=== PATIENT | female | born 1970 | race Caucasian/White ===

== ENCOUNTER 2018-07-19 06:11 | Inpatient (IN) ==
--- NOTE | 2018-06-26 12:51 | Anesthesiology Consultation ---
Date of Service June 26, 2018 Assessment & Plan (1) Encounter for pre-operative examination: Plan: PCP Clearance 07/07/18: Patient found to be at an acceptable cardiopulmonary risk for the planned procedure and may proceed as scheduled. *POSSIBLE DIFFICULT SPINAL BASED ON PATIENT'S REPORTING OF C/S EXPERIENCE* Chart Review Chart Review: Acceptable Risk for Surgery and Patient seen in Pre Admission Testing Teaching & Discussion Instructed NPO after midnight before surgery, except medications with 15 cc of water. Medication instructions provided according to the PAT guidelines. History Surgery Operation Date: 07/19/18 08:50 Proposed Procedures p Right Total Hip Arthroplasty - Maco Sykes MD Height/Weight Height: 5 ft 8 in Weight: 113.5 kg Allergies Allergy/AdvReac Type Severity Reaction Status Date / Time No Known Allergies Allergy Verified 07/19/18 06:29 Medications Home Medications Medication Instructions Recorded Confirmed Last Taken bupropion HCl 300 mg PO QAM 06/20/18 07/19/18 07/18/18 09:00 cetirizine [Zyrtec] 10 mg PO QAM 06/20/18 07/19/18 07/18/18 09:00 cyanocobalamin (vitamin B-12) 1,000 mcg PO QAM 06/20/18 07/19/18 07/18/18 09:00 fluoxetine 40 mg PO QAM 06/20/18 07/19/18 07/18/18 09:00 metformin 500 mg PO BID 06/20/18 07/19/18 07/18/18 18:00 simvastatin 20 mg PO QAM 06/20/18 07/19/18 07/18/18 09:00 Active Medications Generic Name Dose Route Start Last Admin Trade Name Freq PRN Reason Stop Dose Admin Lactated Ringer's 1,000 mls @ 60 mls/hr 07/19/18 06:00 07/19/18 06:50 Lr IV 07/19/18 22:39 Not Given .[id number] RUBÉN Lactated Ringer's 1,000 mls @ 999 mls/hr 07/19/18 06:00 07/19/18 07:30 Lr IV 08/18/18 05:59 15 mls/hr .[id number] RUBÉN Infusion Past Medical History Medical History Anxiety Depression Hyperlipidemia Obesity Osteoarthritis PCOS (polycystic ovarian syndrome) Prediabetes Past Surgical History Surgical History History of arthroscopy RIGHT HIP LABRAL REPAIR History of section Past Anesthesia History No Hx of Anesthesia Complications and No Family Hx of Anesthesia Complications PT MAY HAVE BEEN DIFFICULT SPINAL FOR C/S. SHE RECALLS IT NOT WORKING AND A SECOND INJECTION BEING NEEDED. History of PONV No Motion Sickness Screening History of Motion Sickness: No Social History Smoking Status: Never smoker Do You Dip or Chew Tobacco: No Hx Alcohol Use: Yes Alcohol type: other alcohol intake frequency: holidays/special occasions only Hx Substance Use: No substance use type: does not use Exercise / Class Metabolic Activity II 4-5 Yardwork/Stairs/Walk up hill (no CP or SOB with stairs) Review of Systems Pt denies any recent chest pain, shortness of breath, palpitations, cough, fever or URI. Physical Exam Vital Signs Last Vital Signs Temp 36.7 C 07/19/18 06:37 Pulse 75 07/19/18 06:37 Resp 18 07/19/18 06:37 BP 149/93 H 07/19/18 06:37 Pulse Ox 96 07/19/18 06:37 BP: 118/75 P: 66bpm SPO2: 98% RA T: 97.9 F R: 16 ENMT Mouth: no dental restorations, no chipped teeth and no loose teeth Thyromental Distance: > or= 3.5 Finger Breadths (3.5) Mallampati Class: II Neck normal visual inspection; neck extension not limited Respiratory normal respiratory effort Auscultation: lungs clear to auscultation bilaterally Cardiovascular Rate/Rhythm: regular rate and regular rhythm Heart Sounds: no murmur Vessels: no carotid bruit Testing Electrocardiogram Date: 06/26/18 Findings: + SB @ (54) Low voltage QRS. Chest X-Ray Date: 06/26/18 Findings: + NAD Laboratory Results 06/26/18 12:47 06/26/18 12:47 Blood Type A Positive 06/26/18 12:47 Antibody Screen NEGATIVE 06/26/18 12:47 PT 10.2 Seconds (9.0-12.0) 06/26/18 12:47 INR 1.0 (0.9-1.1) 06/26/18 12:47 APTT 26.7 Seconds (21.0-31.0) 06/26/18 12:47 Urine Color Yellow 06/26/18 Unknown Urine Appearance Clear (Clear) 06/26/18 Unknown Urine pH 6.0 (4.5-7.5) 06/26/18 Unknown Ur Specific [place] 1.011 (1.000-1.030) 06/26/18 Unknown Urine Protein Negative (Negative) 06/26/18 Unknown Urine Glucose (UA) Negative (Negative) 06/26/18 Unknown Urine Ketones Negative (Negative) 06/26/18 Unknown Urine Nitrite Negative (Negative) 06/26/18 Unknown Ur Leukocyte Esterase Negative (Negative) 06/26/18 Unknown 06/26/18 Unknown Urine Culture - Final Urine,Clean Catch No growth - less than 1,000 colonies/mL. 07/19/18 06:30 POC Glucose 110 H 07/19/18 06:20 POC Ur Test NEG
--- NOTE | 2018-06-26 13:05 | PAT Medication Instructions ---
Medication Instructions Date of Service June 26, 2018 Home Medications bupropion HCl 300 mg PO QAM cetirizine [Zyrtec] 10 mg PO QAM cyanocobalamin (vitamin B-12) 1,000 mcg PO QAM fluoxetine 40 mg PO QAM metformin 500 mg PO BID simvastatin 20 mg PO QAM DO NOT take the morning of surgery cetirizine [Zyrtec] 10 mg PO QAM cyanocobalamin (vitamin B-12) 1,000 mcg PO QAM metformin 500 mg PO BID Take morning of surgery With a small sip of water, OTHERWISE NOTHING TO EAT OR DRINK AFTER MIDNIGHT: bupropion HCl 300 mg PO QAM fluoxetine 40 mg PO QAM simvastatin 20 mg PO QAM Take evening before surgery metformin 500 mg PO BID Other Notes If you have any questions please call us at [phone] or [phone] or [phone] or [phone]
[2018-06-26 13:19] LABS: Basophils # (auto) 0.02 K/uL (0-0.2); Basophils % (auto) 0.4 %; Eosinophils # (auto) 0.19 K/uL (0-0.5); Eosinophils % (auto) 3.5 %; Hematocrit (blood only) 38.6 % (37-47); Hemoglobin 12.8 g/dL (12.0-16.0); Immature Granulocytes # (auto) 0.02 K/uL (0.00-0.02); Immature Granulocytes % (auto) 0.4 %; Mean Corpuscular Hgb Conc 33.2 g/dL (32-36); Mean Corpuscular Volume 92.1 fL (80-100); Mean Platelet Volume 8.8 fL (7.4-10.4); Monocytes # (auto) 0.29 K/uL (0.11-0.59); Monocytes % (auto) 5.4 %; Neutrophils # (auto) 2.88 K/uL (1.4-6.5); Neutrophils % (auto) 53.3 %; Platelet Count 276 K/uL (130-400); RDW Coefficient of Variation 13.2 % (11.5-14.5); RDW Standard Deviation 44.1 fL (36.4-46.3); Red Blood Count 4.19 M/uL (4.2-5.4)
[2018-06-26 13:23] LABS: Partial Thromboplastin Time 26.7 Seconds (21.0-31.0); Prothrombin Time 10.2 Seconds (9.0-12.0)
[2018-06-26 13:24] LABS: Calcium 8.8 mg/dl (8.5-10.1); Creatinine Clr Calc Pharmacy 114.9 ml/min; Est GFR (African American) 101.8; Est GFR (Non-African American) 87.8; Potassium 4.2 mmol/L (3.5-5.1)
--- NOTE | 2018-06-26 13:25 | XRay Report ---
XR chest Pre-admission PA/Lat CLINICAL HISTORY: Preoperative evaluation. COMPARISON STUDY: No previous studies for comparison. FINDINGS: Lung volumes are normal. There is no pneumothorax or pleural effusion. There is no consolid ation or evidence for pulmonary edema. Cardiac size is normal. Mediastinal contours are normal. IMPRESSION: No acute cardiopulmonary findings. Electronically signed by: Wilfred Corrigan M.D. 06/26/2018 1:24 PM
[2018-06-26 15:35] LABS: Appearance Urine Clear (Clear); Bilirubin Urine Negative (Negative); Color Urine Yellow; Glucose Urine UA Negative (Negative); Ketones Urine Negative (Negative); Leukocyte Esterase Urine Negative (Negative); Nitrite Urine Negative (Negative); Protein Urine Negative (Negative); Specific Gravity Urine 1.011 (1.000-1.030); Urobilinogen Urine Negative (Negative)
--- NOTE | 2018-06-30 18:40 | History and Physical Report ---
DATE OF ADMISSION: 07/19/2018 CHIEF COMPLAINT: Right hip pain. HISTORY OF PRESENT ILLNESS: This 47-year-old white female presents to the office with complaints of longstanding history of right hip pain. It has been ongoing for over 2 years. She previously had a hip arthroscopy done approximately a year ago without lasting improvement. Pain is increased. She feels her hip is getting stiffer and painful with time. She denies any numbness or tingling. She has noticed some loss of motion. She has tried oral antiinflammatories as well as activity modification and physical therapy without improvement. X-rays have been obtained. The pain is affecting her ADLs and is worse with weightbearing. She elects to proceed with right total hip arthroplasty on 07/19/2018 in hopes of alleviating her pain. PAST MEDICAL HISTORY: Significant for elevated cholesterol, prediabetes, ADHD, obesity, low back pain, and osteoarthritis. PAST SURGICAL HISTORY: in 2006, right hip arthroscopy with labral repair in 2017. ALLERGIES: NKDA. CURRENT MEDICATIONS: Bupropion 300 mg p.o. daily, fluoxetine 40 mg p.o. daily, metformin 500 mg p.o. b.i.d., simvastatin unknown dose daily, vitamin B12 daily, Zyrtec 10 mg daily. SOCIAL HISTORY: Patient is employed. . No tobacco use, no ETOH use. FAMILY HISTORY: Noncontributory. REVIEW OF SYSTEMS: A total of 10 systems reviewed and significant only for above stated conditions. PHYSICAL EXAMINATION: GENERAL: Well-developed and well-nourished middle aged white female, in no acute distress, sitting on a bed, alert and oriented, mildly obese. SKIN: Warm and dry, with good turgor. No rashes or lesions, no ecchymosis or erythema. Tattoos are noted. HEENT: Normocephalic, atraumatic. Eyes: PERRLA, EOMI. Nares patent bilaterally, without turbinate enlargement. Oropharynx without erythema or exudate, no lesions noted. Uvula midline. Oral mucosa moist. Good dentition. HEART: RRR. No MGR. LUNGS: Clear to auscultation bilaterally. No crackles, rhonchi, or wheezing. Good air movement. ABDOMEN: Mildly obese, bowel sounds present x4, soft, nontender. No organomegaly. No masses. MUSCULOSKELETAL: Right hip evaluation reveals no obvious asymmetry or deformity. She has reasonably good motion with hip flexion to around 100 degrees. Significant stiffness with internal and external rotation. There is limited internal rotation to neutral, external rotation of around 15 degrees. This is limited by pain. Ambulatory with an antalgic gait. She has no discomfort with palpation over her greater trochanter or IT band. There is discomfort with palpation over the anterior flexion crease. NEUROLOGIC: Cranial nerves II through XII are intact. Gross sensation is intact across the lower extremities by soft touch. Peripheral pulses are 2+. DATA: Radiographic imaging previously obtained shows end-stage DJD of the right hip. Subchondral cyst formation, joint space narrowing, and periarticular osteophytes are all present. IMPRESSION: Right hip end-stage degenerative joint disease. PLAN Approximately 20 minutes spent with the patient in the office. Postoperative prescriptions for Percocet and Coumadin will be provided at discharge from the hospital. Anticipate discharge to home with home health services. She already has access to a cane. Prescription was provided for a rolling walker. She has an appointment to see her PCP for medical clearance. Preoperative lab work, EKG, and chest x-ray have been ordered. Informed written consent will be obtained on the day of surgery to proceed with right total hip arthroplasty.
[~2018-07-19 06:11] MED LIST: CEFAZOLIN 2000MG 2,000 MG/15 ML SYR IV SCH; LR 500ML BOLUS, THEN 15ML/HR IV SCH; LR 60ML/HR IV SCH; ROPIVACAINE 0.5% HCL/PF 150 MG, BUPIVACAINE 0.5% MPF 30 ML, EPINEPHrine 0.15 MG, Ketoro... INFIL SCH; TRANEXAMIC ACID 1,000 MG **IV Pre-op IV SCH
[2018-07-19] MEDS ORDERED: BUPIVACAINE 0.5 % 5 MG/1 ML PF 10ML VIAL ONE (06:26)
[2018-07-19] MEDS ORDERED: fentaNYL citrate 100 MCG/2 ML VIAL ONE (06:28)
[2018-07-19] MEDS ORDERED: MIDAZOLAM HCL 1 MG/ML 2ML VIAL ONE ×3 (06:28→09:19)
--- NOTE | 2018-07-19 06:30 | History & Physical Bridge Note ---
Date of Service July 19, 2018 History & Physical Bridge Note I have examined the patient, reviewed the History & Physical and in the interval since the performance of the History & Physical I have noted the following changes of clinical significance: consent obtained.no changes noted
[2018-07-19] MEDS: LR 500ML BOLUS, THEN 15ML/HR IV SCH ×4 (07:00→13:41)
[2018-07-19] MEDS ORDERED: ONDANSETRON INJ 2 MG/ML 2 ML VIAL ONE (07:36)
[2018-07-19] MEDS ORDERED: LIDOCAINE HCL 2% 2 ML VIAL/AMP(20MG/ML) INFIL ONE (07:36)
[2018-07-19] MEDS ORDERED: PROPOFOL IV EMULSION 10 MG/ML 20 ML VIAL IV ONE (07:36)
[2018-07-19] MEDS ORDERED: PHENYLEPHRINE 100MCG/ML 5ML SYR IV PRN (08:13)
[2018-07-19] MEDS ORDERED: ONDANSETRON INJ 2 MG/ML 2 ML VIAL IV PRN ×2 (08:13→12:02)
[2018-07-19] MEDS ORDERED: KETOROLAC 30 MG/ML VIAL IV PRN (08:13)
[2018-07-19] MEDS ORDERED: ATROPINE SULFATE 0.1 MG/ML 10ML SYR IV PRN (08:13)
[2018-07-19] MEDS ORDERED: ePHEDrine sulfate 50 MG/ML AMP IV PRN (08:13)
[2018-07-19] MEDS ORDERED: HYDROmorphone INJ 1 MG/ML SYRINGE IV PRN (08:13)
[2018-07-19] MEDS ORDERED: POVIDONE-IODINE OP SOLN 30 ML BTL ONE (08:43)
[2018-07-19] MEDS ORDERED: ORTHO JOINT ANESTHETIC ONE (08:43)
[2018-07-19] MEDS ORDERED: CEFAZOLIN 250 MG/ML 1 GM VIAL ONE (09:23)
[2018-07-19] MEDS ORDERED: PHENYLEPHRINE HCL 10 MG/ML VIAL ONE (09:28)
[2018-07-19] MEDS ORDERED: CEFAZOLIN 1000MG 1,000 MG/7.5 ML SYR IV SCH (09:45)
--- NOTE | 2018-07-19 10:43 | Post Operative Brief Note ---
Immediate Post Op Note v1 Date of Surgery July 19, 2018 Pre & Post Diagnosis Operation Date: 07/19/18 08:50 Pre-Op Diagnosis: Right Hip Degenerative Joint Disease Post-Op Diagnosis: Right Hip Degenerative Joint Disease Procedure Operation Date: 07/19/18 08:50 Actual Procedures p Right Total Hip Arthroplasty, Uncemented(Right) - Maco Sykes MD Surgeon Maco Sykes MD Senior National Account Manager [email or web address] Estimated Blood Loss 200 Findings Consistent with Post-Op Diagnosis
--- NOTE | 2018-07-19 10:57 | Operative Report ---
Post Operative Report Pre & Post Diagnosis Operation Date: 07/19/18 08:50 Pre-Op Diagnosis: Right Hip Degenerative Joint Disease Post-Op Diagnosis: Right Hip Degenerative Joint Disease Procedure Operation Date: 07/19/18 08:50 Actual Procedures p Right Total Hip Arthroplasty, Uncemented(Right) - Maco Sykes MD Surgeon CHASITY Sykes MD Global Implementation Manager [email or web address] Estimated Blood Loss 200 Findings Consistent with Post-Op Diagnosis Specimens see operative report Drains none Complications none Disposition Accompanied Patient To Recovery: Yes Disposition: Recovery Room Indications This 47-year-old white female presented to the office with complaints of intractable right hip pain. She had tried conservative care measures as well as hip arthroscopy without lasting improvement. She elected to proceed with surgical intervention after being educated about potential risks and outcomes. Preoperative imaging was obtained. Description of Procedure Patient was administered a spinal anesthetic and then taken to the operating room where she was given sedation. She was prepped and draped in the usual sterile fashion. Please see Dr. Sykes's operative report for specifics of the procedure. I was present for the entire case from initial patient positioning through final wound closure. Assistance was provided in tissue retraction, hemostasis, trial implant placement, final implant placement, and final wound closure. Patient was taken to the recovery room in satisfactory condition. I attest to the content of the Intraoperative Record and any orders documented therein. Any exceptions are noted below.
--- NOTE | 2018-07-19 11:12 | Operative Report ---
DATE OF OPERATION: 07/19/2018 SURGEON: Maco Sykes MD ANIMAL RIDE ATTENDANT: Gareth Nick PA-C. No resident or fellow available. PREOPERATIVE DIAGNOSIS: Osteoarthritis, right hip, with dysplasia. POSTOPERATIVE DIAGNOSIS: Same. OPERATION PERFORMED: Noncemented right total hip replacement. SUMMARY OF IMPLANTS: Size 48 acetabular shell sector cup hole eliminator with cancellous screw 6.5 x 25, liner 32 x 48 neutral, femoral stem 1 high offset Tri-Lock and then ceramic 32 +9 head. ESTIMATED BLOOD LOSS: 200 mL. CRYSTALLOID: Per anesthesia. DVT prophylaxis with Coumadin. Pathology pending on bone. DESCRIPTION OF PROCEDURE: The patient appropriately identified, site verified, consent verified. Antibiotics confirmed as being given. Right lower extremity was prepped and draped in usual routine fashion with the patient in the left lateral decubitus position. A posterior approach to the hip was obtained. She had a high BMI, incision appropriate. Full thickness flaps raised. Charnley retractor placed. IT band opened, gluteus abimael fascia opened. Care taken to protect the sciatic nerve and the Charnley retractor placed deep. The short external rotators and capsule were released and teed. The hip was dislocated. The femoral neck was resected. Bleeding controlled with the electrocautery. Serial reaming carried up to a 48 and a 48 cup impacted into appropriate anteversion and inclination with good compressive rim fit. A 6.5 x 25 screw was then placed with excellent purchase. The trial liner seated. The femur was then flexed and internally rotated into the wound. The proximal femur prepared with a box car washer, canal finder, lateralizing rasp, and serial broaching up to a size 1. Trial reduction with +5 and a +9 gave good stability but excellent stability with a +9. The hip was then dislocated. All trial implants were removed. The wound was irrigated with Betadine and Pulsavac. Hole eliminator seated, permanent liner seated, permanent stem and head seated, the hip was reduced, it was stable in all planes. Leg lengths were good. The wound was then closed after irrigation with Betadine and Pulsavac with #2 Vicryl for the capsule and short external rotators, #2 Vicryl for the IT band, and gluteus abimael fascia, 2-0 Vicryl for the subcutaneous layer, stainless steel clips and retention, 2-0 Prolene sutures for skin. Appropriate dressing applied and the patient transferred to recovery room in satisfactory condition having tolerated the procedure well. Again summary of implants as noted above, hole eliminator, acetabular shell sector cup 48, cancellous screw 6.5 x 25, liner 32 x 48 neutral, 1 high offset Tri-Lock femoral stem, and a 32 +9 ceramic head. I attest to the content of the Intraoperative Record and any orders documented therein. Any exception s are noted below.
--- NOTE | 2018-07-19 11:40 | Anesthesiology Progress Note ---
Date of Service July 19, 2018 Anesthesia Post Procedure Vital Signs Vital Signs: Temp Pulse Pulse Resp BP Pulse Ox 07/19/18 11:25 72 20 122/77 97 07/19/18 11:15 67 14 125/75 99 07/19/18 11:05 66 12 118/77 97 07/19/18 10:55 64 12 124/77 98 07/19/18 10:47 36.4 C L 83 15 109/74 98 07/19/18 06:37 36.7 C 75 18 149/93 H 96 Pain Intensity Right Hip: Pain Intensity: 0 Notes Mental Status: alert / awake / arousable Patient Amnestic to Procedure: Yes Nausea / Vomiting: adequately controlled Pain: adequately controlled Airway Patency, RR, SpO2: stable & adequate BP & HR: stable & adequate Hydration State: stable & adequate Neuraxial Anesthesia: was administered and sensory block is resolving Anesthetic Complications: no major complications apparent
--- NOTE | 2018-07-19 11:47 | XRay Report ---
XR pelvis 1-2V routine CLINICAL HISTORY: Post Surgical DEGENERATIVE ARTHRITIS COMPARISON: 05/22/2018 DISCUSSION: There are postsurgical changes of a total right hip arthroplasty. There is no dislocation . No fractures are delineated. There is air within soft tissues consistent with recent surgery. Overl zhou skin mono are evident. IMPRESSION: Postsurgical changes of a total right hip arthroplasty. No evidence of dislocation. Electronically signed by: Davon Nicole M.D. 07/19/2018 11:46 AM
[2018-07-19] MEDS ORDERED: MAGNESIUM HYDROXIDE SUSP 30 ML UDC PO PRN (12:02)
[2018-07-19] MEDS ORDERED: NALOXONE HCL 0.4 MG/1 ML VIAL/CARP IV PRN (12:02)
[2018-07-19] MEDS ORDERED: METOCLOPRAMIDE HCL INJ 5 MG/ML 2 ML VIAL IV PRN (12:02)
[2018-07-19] MEDS ORDERED: BISACODYL 10 MG SUPP PR PRN (12:02)
[2018-07-19] MEDS ORDERED: ALUMINUM/MAGNESIUM SUSP 30 ML UDC PO PRN (12:02)
[2018-07-19] MEDS ORDERED: PHARMACY GLYCEMIC MGMT CONSULT PRN (12:02)
[2018-07-19] MEDS ORDERED: DiphenhydrAMINE HCL 50 MG/ML VIAL IV PRN (12:02)
[2018-07-19] MEDS ORDERED: HYDROmorphone INJ 0.5 MG/0.5 ML SYR IV PRN (12:02)
[2018-07-19] MEDS: OXYCODONE HCL IR 5 MG TAB (IMMEDIATE RELEASE) PO PRN ×3 (12:10→20:45)
[2018-07-19] MEDS ORDERED: SODIUM CHLORIDE 0.9% 1000ML 1,000 ML IV SCH (12:15)
[2018-07-19] MEDS ORDERED: GLUCAGON FOR INJ 1 MG VIAL IM PRN (12:57)
[2018-07-19] MEDS ORDERED: GLUCOSE 10 TABS/TUBE PO PRN (12:57)
[2018-07-19] MEDS ORDERED: GLUCOSE 40% GEL 15 GM TUBE PO PRN (12:57)
[2018-07-19] MEDS ORDERED: DEXTROSE 50% 50 ML SYRINGE IV PRN (12:57)
[2018-07-19] MEDS ORDERED: CARBOHYDRATES FOR HYPOGLYCEMIA PO PRN (12:57)
[2018-07-19] MEDS ORDERED: ORTHO WARFARIN NOMOGRAM SCH (14:00)
--- NOTE | 2018-07-19 14:20 | Progress Note ---
DATE: 07/19/2018 Postop check status post right total hip replacement. The patient is doing well. Denies any chest pain, shortness of breath, fever, chills, nausea, vomiting or headache. She was able to eat, drink. No void yet. She notes her spinal is wearing off, but still has some decreased function of both lower extremities. Vital signs are stable. She is afebrile. Neurovascular check limited by spinal. Has trace extension and flexion of the toes and ankle. Hip is located. Wound dressing clean, dry and intact. Postop x-rays look excellent. ASSESSMENT: Doing well status post right total hip replacement. Await spinal to wear off and get up on her feet. We will Hep-Lock IV as she is eating and drinking well. Deep venous thrombosis prophylaxis per Coumadin.
[2018-07-19 14:23] LABS: INR 1.1 (0.9-1.1); Prothrombin Time 10.8 Seconds (9.0-12.0)
[2018-07-19] MEDS: INSULIN ASPART 100 UNITS/ML 3 ML PEN SC SCH ×3 (14:27→21:09)
[2018-07-19] MEDS: ACETAMINOPHEN 500 MG TAB PO SCH ×2 (14:30→20:46)
--- NOTE | 2018-07-19 15:20 | Pharmacy Report ---
Pharmacy Glycemic Short Note 2 - Date of Service July 19, 2018 - Glycemic Short BSG Results (Last 24 hours): 07/19/18 07/19/18 07/19/18 06:30 10:50 13:33 POC Glucose 110 H 93 116 H OUTPATIENT ANTIDIABETIC REGIMEN: * Metformin 500mg BID ASSESSMENT: * 47 year old female who is Type 2 diabetic and status post JENNIFER * A1C ordered for 07/20/18 * Conservative Novolog parameters used since patient did not receive steroids in the OR and all BSGs<120 * Pt is maintained on oral antidiabetic agents as an outpatient * Will hold oral agents for admission and utilize SQ basal bolus insulin regimen which is the recommended regimen for inpatient glycemic control. * Will initiate weight based insulin dosing for insulin na�ve patient and titrate based on BSG trends. PLAN FOR INPATIENT GLYCEMIC CONTROL: * Hold outpatient oral diabetes medications * Basal insulin * Lantus will be ordered on Post-op day #1 to cover Dexamethasone 10mg IV ( dose to be determined based on fasting BSG) * Bolus insulin * NovoLog per scale ACHS and midnight check * Goal Range: Low 110 mg/dL - High 140 mg/dL * Correction Factor: 20 mg/dL/unit * Nutritional / Prandial insulin per carb ratio of 1 unit per 10 grams CHO consumed
[2018-07-19] MEDS ORDERED: WARFARIN SOD 5 MG TAB PO SCH (16:00)
[2018-07-19] MEDS ORDERED: TRANEXAMIC ACID 1,000 MG in 0.9 % SODIUM CHLORIDE 100 ML IV SCH (17:00)
[2018-07-19] MEDS: CEFAZOLIN 2000MG 2,000 MG/15 ML SYR IV SCH (17:59)
[2018-07-19] MEDS: FERROUS GLUCONATE 324 MG TAB PO SCH (18:08)
[2018-07-19] MEDS: KETOROLAC 30 MG/ML VIAL IV PRN (19:36)
[2018-07-19] MEDS: DOCUSATE SODIUM 100 MG CAP PO SCH (20:46)
--- NOTE | 2018-07-19 20:47 | Discharge Summary ---
CHIEF COMPLAINT: Right hip pain. HISTORY OF PRESENT ILLNESS: Underwent elective right total hip replacement. The patient has some anxiety, but is moving reasonably well. She denies any chest pain, shortness of breath, fever, chills, nausea, vomiting, headache. PAST MEDICAL HISTORY: Remarkable for elevated cholesterol, prediabetes, ADHD, obesity, low back pain, osteoarthritis. PAST SURGICAL HISTORY: Includes , right hip scope with labral repair in 2017. ALLERGIES: None. CURRENT MEDICATIONS: Include bupropion, fluoxetine, metformin, simvastatin, vitamin B12, Zyrtec. She will continue all those medications and add p.r.n. pain medications, see prescription, and Coumadin, keep INR 1.8-2.2. SOCIAL HISTORY: Reveals that she is employed and . No tobacco or alcohol use. FAMILY HISTORY: Noncontributory. HOSPITAL COURSE: Has been uneventful. Tolerated it well. Eating well, drinking well. X-rays look good. Continue with progress at home health. Potential discharge tomorrow. Follow up in [address] Prevena tomorrow. Indicated based on BMI.
[2018-07-19] MEDS ORDERED: SENNA 8.6 MG TAB PO SCH (21:00)
[2018-07-20] MEDS: CEFAZOLIN 2000MG 2,000 MG/15 ML SYR IV SCH (00:35)
[2018-07-20] MEDS: OXYCODONE HCL IR 5 MG TAB (IMMEDIATE RELEASE) PO PRN (00:53)
[2018-07-20] MEDS: KETOROLAC 30 MG/ML VIAL IV PRN ×2 (02:43→09:15)
[2018-07-20] MEDS: ACETAMINOPHEN 500 MG TAB PO SCH (06:09)
[2018-07-20 07:02] LABS: Basophils # (auto) 0.02 K/uL (0-0.2); Basophils % (auto) 0.2 %; Eosinophils # (auto) 0.01 K/uL (0-0.5); Eosinophils % (auto) 0.1 %; Hematocrit (blood only) 36.4 % (37-47); Hemoglobin 12.2 g/dL (12.0-16.0); Immature Granulocytes # (auto) 0.02 K/uL (0.00-0.02); Immature Granulocytes % (auto) 0.2 %; Lymphocytes % (auto) 10.5 %; Mean Corpuscular Hgb Conc 33.5 g/dL (32-36); Mean Corpuscular Volume 90.8 fL (80-100); Mean Platelet Volume 8.6 fL (7.4-10.4); Monocytes # (auto) 0.67 K/uL (0.11-0.59); Monocytes % (auto) 6.4 %; Neutrophils # (auto) 8.67 K/uL (1.4-6.5); Neutrophils % (auto) 82.6 %; Platelet Count 206 K/uL (130-400); RDW Coefficient of Variation 12.9 % (11.5-14.5); Red Blood Count 4.01 M/uL (4.2-5.4); White Blood Count 10.49 K/uL (4.8-10.8)
[2018-07-20 07:14] LABS: INR 1.1 (0.9-1.1); Prothrombin Time 10.8 Seconds (9.0-12.0)
--- NOTE | 2018-07-20 07:16 | Progress Note ---
DATE: 07/20/2018 SUBJECTIVE: Postop day #1 status post right total hip replacement. The patient is doing well. Denies chest pain, shortness of breath, fever, chills, nausea, vomiting or headache. OBJECTIVE: Vital signs are stable. She is afebrile. The a.m. laboratory work is pending. Neurovascular check femoral sciatic nerve is good, has been up ambulatory, moving around well. Wound dressing clean, dry and intact. ASSESSMENT: Doing well. Discharge today after PT, OT. Coumadin per nomogram. Discharge on 4 mg if INR is less than or equal to 1.5; if greater than 1.5 or less than 1.9, discharge on 2 mg; if greater than 2.0, hold. Repeat INR on Tuesday. Prevena to be placed today. Follow up in 1 week for Prevena dressing change.
[2018-07-20] MEDS ORDERED: INSULIN ASPART 100 UNITS/ML 3 ML PEN SC SCH ×2 (07:30)
[2018-07-20 07:41] LABS: BUN Creatinine Ratio 15.3 (10-20); Calcium 8.3 mg/dl (8.5-10.1); Creatinine Clr Calc Pharmacy 98.9 ml/min; Est GFR (African American) 84.8; Est GFR (Non-African American) 73.2; Potassium 4.2 mmol/L (3.5-5.1)
[2018-07-20] MEDS ORDERED: dexAMETHasone 10 MG in SYRINGE 0 ML IV SCH (08:00)
[2018-07-20 08:28] LABS: Estimated Average Glucose 128 mg/dl
[2018-07-20] MEDS ORDERED: FLUOXETINE HCL 20 MG CAP PO SCH (09:00)
[2018-07-20] MEDS ORDERED: CETIRIZINE HCL 10 MG TABLET PO SCH (09:00)
[2018-07-20] MEDS ORDERED: BuPROPion XL 300 MG TABCR PO SCH (09:00)
[2018-07-20] MEDS ORDERED: LANTUS PER UNIT CHARGE SQ SCH (09:00)
[2018-07-20] MEDS ORDERED: SIMVASTATIN 20 MG TAB PO SCH (09:00)
[2018-07-20] MEDS ORDERED: MULTIVITAMIN TAB PO SCH (09:00)
[2018-07-20] MEDS: FERROUS GLUCONATE 324 MG TAB PO SCH (09:08)
[2018-07-20] MEDS: DOCUSATE SODIUM 100 MG CAP PO SCH (09:10)
--- NOTE | 2018-07-20 09:34 | Anesthesiology Progress Note ---
Date of Service July 20, 2018 Anesthesia Post Procedure Vital Signs Vital Signs: Temp Pulse Pulse Resp BP BP Pulse Ox 07/20/18 08:00 36.5 C 79 16 107/70 96 07/20/18 04:24 36.4 C L 76 16 110/69 98 07/19/18 23:25 36.7 C 72 16 138/85 95 07/19/18 19:45 36.7 C 72 16 122/77 96 07/19/18 14:55 36.6 C 79 18 126/77 96 07/19/18 13:52 78 16 104/72 98 07/19/18 12:20 71 16 123/77 94 07/19/18 11:50 36.6 C 72 18 108/68 99 07/19/18 11:35 36.2 C L 64 12 109/74 95 07/19/18 11:25 72 20 122/77 97 07/19/18 11:15 67 14 125/75 99 07/19/18 11:05 66 12 118/77 97 07/19/18 10:55 64 12 124/77 98 07/19/18 10:47 36.4 C L 83 15 109/74 98 Pain Intensity Right Hip: Pain Intensity: 0 Notes Mental Status: alert / awake / arousable Nausea / Vomiting: adequately controlled Pain: adequately controlled Airway Patency, RR, SpO2: stable & adequate BP & HR: stable & adequate Hydration State: stable & adequate Neuraxial Anesthesia: was administered and sensory block resolved Anesthetic Complications: no major complications apparent and Pt Satisfied with anesthetic care
[2018-07-20] MEDS ORDERED: WARFARIN SOD 5 MG TAB PO ONE (11:15)
== END 2018-07-20 13:09 | disposition home health service (06) | DRG 470 ==
LOC: ASU 06:11 → 3E 10:56